=== PATIENT | male | born 1955 | race Two or more races ===

== ENCOUNTER → 2024-08-04 | Outpatient (CLI) | payer MEDICARE, SELFPAY ==
--- NOTE | 2024-08-04 09:30 | XR_ITS ---
Examination: CT chest with intravenous contrast 2-D sagittal and coronal reconstructions Exam date and time: August 04, 2024 0953 hours INDICATIONS: Left upper lobe pulmonary mass 3.3 x 4.2 x 3[address] chest February 05, 2023 CTDI:vol (mGy) 13.4 DLP: (mGycm) 474 Technique: Multiple axial sections of the thorax have been obtained. Sections have been obtained, 3 mm slice thickness. Mediastinal and lung density settings have been obtained. Intravenous contrast administered, 60 cc Isovue-370. 2-D sagittal, coronal images obtained. Low dose protocols were performed. One or more of the following dose reduction techniques were used; automated exposure control, adjustment of the mA and/or KV according to patient size, use of iterative reconstruction technique. Findings: No thoracic aortic aneurysm dilatation No pulmonary artery filling defects Smaller pulmonary mass in the left upper lobe, 2.7 x 1.7 cm compared to 4.2 x 3.3 cm on February 05, 2023 Subcentimeter satellite nodules. This pulmonary mass No pulmonary edema Fatty infiltration throughout the liver Small gallstones IMPRESSION: Smaller pulmonary mass in the left upper lobe compared with February 05, 2023, recommend continued 6 month follow-up CT chest
== END | disposition home or self-care (01) ==
LOC: CCTX 09:05
PROVIDERS: PCP Family Medicine; Referring Provider Internal Medicine; Visit Provider Internal Medicine
DX: R91.8 Other nonspecific abnormal finding of lung field (principal); K80.20 Calculus of gallbladder without cholecystitis without obstruction; K76.0 Fatty (change of) liver, not elsewhere classified
CPT/HCPCS: 71260; A4649; Q9967